=== PATIENT | male | born 1965 | race Caucasian/White ===

== ENCOUNTER 2025-01-24 14:25 | Emergency (ER) | payer OTHER, SELFPAY ==
[2025-01-24] VITALS (10 sets, daily range): BP systolic 144–200; BP diastolic 86–98; PULSE 68–80; RESP 6–34; TEMP 36.5; O2SAT 95–99; BMI 30.6
--- OUTSIDE RECORDS SUMMARY | 2025-01-24 14:27 | XMS_ITS | Clinical Summary ---
[facility] Address [address] [place] [address] Care Team Providers Care Fermenter Champagne Name Role Phone Pcp, Pt Declines Primary Care Provider [phone] Source Comments You are receiving this document as you are listed as the primary care provider,follow-up provider, or the patient has been referred to you for consultation.This is in compliance with the Medicare and[facility] EHR Incentive Program,which states Providers who transition their patient to another setting of careor provider of care or refers their patient to another provider of care shouldprovide summary care record for each transition of care or referral. [facility] Allerg[facility] Active Allergy Reactions Criticality Noted Date Comments Morphine Hives High 10/12/2016 Medications doxycycline hyclate (AKA PERIOSTAT) 20 MG tablet Take 20 mg by mouth two times a day. Take for 30 days. 6 7 Active minocycline (MINOCIN) 50 MG capsule 20 mg two times a day. 4 7 Active metroNIDAZOLE (METROGEL) 0.75 % gel APPLY 1 APPLICATION TO AFFECTED AREA 2 TIMES A DAY 3 7 Active Active Problems No known active problems Social History Tobacco Use Types Packs/Day Years Used Date Smoking Tobacco: Never Smokeless Tobacco: Never Alcohol Use Standard Drinks/Week Comments Yes 0 (1 standard drink = 0.6 oz pur e alcohol) 4 drinks per week on average Sex and Gender Information Value Date Recorded Sex Assigned at Not on file Legal Sex Male 8:15 AM CDT Gender Identity Not on file Sexual Orientation Not on file Last Filed Vital Signs Vital Sign Reading Time Taken Comments Blood Pressure - - Pulse - - Temperature 35.9 C (96.6 F) 04/20/2017 1:08 PM CDT Respiratory Rate - - Oxygen Saturation - - Inhaled Oxygen Concentration - - Weight 90.7 kg (200 lb) 10/12/2016 10:56 AM CDT Height 175.3 cm (5' 9) 10/12/2016 10:56 AM CDT Body Mass Index 29.53 10/12/2016 10:56 AM CDT Plan of Treatment Health Maintenance Due Date Last Done Comments Colon Cancer Screening Plan Due 1965 Hep C Screening (Preventive Services) 1965 PSA Screening Discussion 1965 HIV Screening (Preventive Services) 1979 Adult Preventive Visit 1981 Cholesterol 1998 Pneumococcal Vaccine 50+ Yrs (1 of 1 - PCV) 2013 Zoster/Shingles Vaccine (1 of 2) 2013 COVID-19 Vaccine (1 - 2023-2 5 season) 2024 Influenza Vaccine (Season Ended) 2025 DTaP/Tdap/Td Vaccine (2 - Tdap) 01/20/2027 7 RSV Vaccine (1 - 1-dose 75+ series) 2038 HepA Vaccine Aged Out No longer eligi ble based on patient's age to complete this topic HepB Vaccine Aged Out No longer eligi ble based on patient's age to complete this topic Hib Vaccine Aged Out No longer eligi ble based on patient's age to complete this topic IPV (Polio) Vaccine Aged Out No longe r eligible based on patient's age to complete this topic MCV4 Vaccine Aged Out No longer eligi ble based on patient's age to complete this topic Meningococcal B Vaccine Aged Out No l onger eligible based on patient's age to complete this topic Care Teams Fermenter Champagne Relationship Specialty Start Date End Date Pcp, Pt MD Megan [place], [place] [id number] PCP - General 03/09/17
--- OUTSIDE RECORDS SUMMARY | 2025-01-24 14:27 | XMS_ITS | Clinical Summary ---
Author Organization [facility] Address [address] [place] [id number] Care Team Providers Care Berry Picker Name Role Phone Pcp, No Primary Care Provider Unavailabl e Allergies Active Allergy Reactions Criticality Noted Date Comments Morphine Chest Pain 03/07/2012 Medications doxycycline (PERIOSTAT) 20 mg tablet Take 20 mg by mouth once daily. Active doxycycline (VIBRAMYCIN) 50 mg capsuleIndicati ons:Rosacea Take 1 Capsule (50 mg) by mouth once daily. Do not take with dairy. 90 Capsule 3 04/01/2023 Active Active Problems Problem Noted Date Diagnosed Date Rosacea 12/30/2022 Screening for colon cancer Immunizations Immunization Administration Dates Next Due Td (Age >=7 Years) 06/27/2002 Tdap 01/20/2017 Family History Medical History Relation Name Comments Good Health Father Heart Disease Mother Good Health Sister 1 Good Health Sister 2 Relation Name Status Comments Father Mother Sister 1 Sister 2 Social History Tobacco Use Types Packs/Day Years Used Date Smoking Tobacco: Never Smokeless Tobacco: Never Tobacco Cessation:Counseling Given: Yes Alcohol Use Standard Drinks/Week Comments Yes 0 (1 standard drink = 0.6 oz pur e alcohol) social PHQ-2 Answer Date Recorded PHQ-2 TOTAL SCORE 0 12/30/2022 Social Connections Answer Date Recorded Frequency of Communication with Friends and Fami ly Not on file 12/31/2023 Financial Resource Strain Answer Date R ecorded Difficulty of Paying Living Expenses 3 12/30/2022 Difficulty of Paying Living Expenses Not on file 12/30/2022 Food Insecurity Answer Date Recorded Worried About Running Out of Food in the Last Ye ar 1 12/30/2022 Transportation Needs Answer Date Record ed Lack of Transportation (Medical) 1 12/30/2022 Housing Stability Answer Date Recorded Unable to Pay for Housing in the Last Year 1 12/30/2022 Sex and Gender Information Value Date Recorded Sex Assigned at Not on file 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 Gender Identity Not on file Sexual Orientation Not on file Obstetrics History Last Filed Vital Signs Vital Sign Reading Time Taken Comments Blood Pressure 138/88 12/30/2022 8:30 AM CDT Pulse 80 12/30/2022 8:28 AM CDT Temperature 36.2 C (97.2 F) 02/22/2017 7:48 AM CDT Respiratory Rate 16 02/22/2017 10:38 AM CDT Oxygen Saturation 100% 02/22/2017 10:38 AM CDT Inhaled Oxygen Concentration - - Weight 92.3 kg (203 lb 6.4 oz) 12/30/2022 8:28 A M CDT Height 176.5 cm (5' 9.5) 12/30/2022 8:28 AM CDT Body Mass Index 29.61 12/30/2022 8:28 AM CDT Plan of Treatment Health Maintenance Due Date Last Done Comments HIV for age 15-65 1978 Hepatitis C screening for ag e 18-79 1981 Pneumococcal series for age 50+ (1 of 1 - PCV) 2013 Zoster (shingles) series for age 50+ (1 of 2) 2013 BMI (ht and wt on same day) for age 18+ 12/31/2023 12/30/2022, 01/22/2017, 01/20/2017 Depression screening for age 12+ 12/31/2023 12/30/2022, 01/20/2017 COVID-19 vaccine series ( season) 2024 12/05/2020, 11/12/2020 Influenza Vaccine (#1) 2025 Tetanus booster 01/20/2027 01/20/2017, 06/27/2002 Colonoscopy through age 75 02/22/2027 02/22/2017 Lipids for age 45-75 12/31/2027 12/30/2022, 01/21/2017, 03/07/2012 RSV vaccine for adults or (1 - 1-dose 75+ series) 2038 Hepatitis B series for 19+ Aged Out N o longer eligible based on patient's age to complete this topic Procedures Procedure Name Priority Date/Time Associated Diagnosis Comments LIPID PANEL W REFLEX MEASURED LDL Routine 12/30/2022 9:19 AM CDT Lipid screening COLONOSCOPY 02/22/2017 9:46 AM CDT from Last 3 Months or Most Recently Relevant to Health Maintenance Results * LIPID PANEL W REFLEX MEASURED LDL (12/30/2022 9:19 AM CDT) CHOLESTEROL,TOTAL 168 100 - 199 mg/dL 12/30/2022 5:56 PM CDT [facility] Comment: Cholesterol, Total Reference Ranges Desirable <200 mg/dL Borderline 200-239 mg/dL High >=240 mg/dL TRIGLYCERIDES 57 <150 mg/dL 12/30/2022 5:56 PM CDT [facility] HDL CHOLESTEROL 56 >40 mg/dL 5:56 PM CDT [facility] NON-HDL CHOLESTEROL 112 <145 mg/dl 12/30/2022 5:56 PM CDT [facility] CHOL/HDL RATIO 3.00 <4.50 12/30/2022 5:56 PM CDT [facility] LDL CHOLESTEROL 101 <=130 mg/dL 12/30/2022 5:56 PM CDT [facility] VLDL CHOLESTEROL 11 <=30 mg/dL 12/30/2022 5:56 PM CDT [facility] PROVIDER ORDERED STATUS RANDOM 12/30/2022 5:56 PM CDT [facility] Blood BLOOD SPECIMEN / Unknown Venipuncture / Unknown 12/30/2022 9:19 AM CDT 12/30/2022 9:20 AM CDT Yane Jarvis MD CHEMISTRY Final Res ult [facility] [address] [place] [address], * COLONOSCOPY (02/22/2017 9:46 AM CDT) 02/22/2017 9:46 AM CDT Narrative Transcriptions Sebastian Rivers MD - 02/22/2017 10:14 AM CDT Endoscopy Patient Name: Manny Bridges Procedure Date: 02/22/2017 Gender: Male Date of : 1965 Admit Type: Ambulatory Procedure: Colonoscopy Proceduralist: Sebastian Rivers MD Referring MD: Yane Jarvis Patient Profile: Gema Alcantar patient. Indications/Pre-Op Diagnosis: Screening for colorectal malignantneoplasm Medications: Monitored Anesthesia Care Procedure Description: The patient had risks, benefits and alternatives explained to andgave informed consent. The patient had a stable cardiopulmonary status and judged an adequate candidate for conscious sedation. The endoscope was passed through the anus and advanced to the cecum, identified by appendiceal orifice and ileocecal valve. Thecolonoscopy was performed without difficulty. The patient tolerated the procedure well. The quality of the bowel preparation was good. The ileocecal valve, appendiceal orifice, and rectum were photographed. Complications: No immediate complications. Estimated Blood Loss & Specimen: Estimated blood loss: none. Specimen collected: None Findings: The colon appeared normal. The perianal and digital rectal examinations were normal. Impressions/Post-Op Diagnosis: - The colon appeared normal. - No specimens collected. Recommendation: - Repeat colonoscopy in 10 years for surveillance. Sebastian Rivers MD 02/22/2017 10:13:56 AM This report has been signed electronically. Note Initiated On: 02/22/2017 9:46 AM Total Procedure Duration Time 0 hours 9 minutes 20 seconds Scope Withdrawal Time 0 hours 6 minutes 7 seconds Sebastian Rivers MD PROCEDURE ORD Final Result from Last 3 Months or Most Recently Relevant to Health Maintenance Insurance Advance Directives * Full Code (Latest Code Status on File) Date Activated Date Inactivated Comments 02/22/2017 7:44 AM 02/22/2017 12:58 PM Care Teams Berry Picker Relationship Specialty Start Date End Date Pcp, No . PCP - General 02/18/17
--- NOTE | 2025-01-24 15:15 | ED.GENADULT ---
HPI - General Adult General Chief complaint: Eye Problems Stated complaint: Headache, black spots in vision Time Seen by Provider: 01/24/25 14:26 History of Present Illness HPI narrative: Patient here with bilateral intermittent blacks spots in periphery starting at 7 am this morning , dull headache (bilaterally) 2/10 starting at 10 am. Doesn 't see a doctor often. Otherwise healthy. 59-year-old man presenting to emergency department with concern of high blood pressure and spots in his eyes. Does not have any visual problems other than needing progressive says. Does not get regular healthcare generally due to his degree of health. Has past standard screening see notes. Today woke around 6 or 615. At work around 7 he began to notice some spots in the periphery of his vision. This was located between 3-5 oclock in his right eye 9-7 oclock in his left eye. Would not having eye pain. There has been no trauma. The spots of come and gone over the course of the day. Also over the course the day began to mild generalized headache maybe 2/10. Does not typically get headaches. Certainly no diagnosis of migraines. No neck pain. No chest pain. No shortness of breath. No nausea. No weakness in his extremities or loss of sensation. No loss of vision otherwise. No diplopia. When he began to research his initial symptoms he went to get his blood pressure checked noted elevated in the 170s over 70ish and then with further research was advised to present for evaluation. Does not have a history of high blood pressure either. Related Data Home Medications ?Medication ?Instructions ?Recorded ?Confirmed doxycycline hyclate 50 mg capsule 50 mg PO DAILY 01/24/25 01/24/25 Allergies Allergy/AdvReac Type Severity Reaction Status Date / Time morphine Allergy Severe Difficulty Verified 01/24/25 14:32 Breathing Review of Systems Status of ROS: Reports: 6 or more systems reviewed and unremarkable except as noted in History and below [facility] Social History Smoking Status: Never smoker How often do you have a drink containing alcohol: 4 or more times a week How many standard drinks containing alcohol do you have on a typical day: 3 or 4 AUDIT-C Alcohol total score: 5 Non-prescribed substance use: denies use service: No Exam Narrative: Exam Narrative: Very pleasant. Well built. NAD. Hand. Cranial nerves 2-12 intact. Pupils are 3 mm and equal. Sclera look to be without irritation. Clear anterior chamber. Funduscopic exam in darkened room actually was done without notable difficulty. Exam looks WNL with visible optic discs. Extraocular movements are full. No pain to palpation about the neck. It is supple. Breathing easily. Heart in regular rate and rhythm without murmur rub or gallop. Head is atraumatic. Moving all extremities without difficulty/with good strength. No extremity edema. Is well-perfused. Const: Vital Signs, click to edit/add: Vital Signs - 24 hr 01/24/25 14:35 01/24/25 15:02 Temperature 97.7 F Pulse Rate [Pulse Oximeter] 80 72 Respiratory Rate 18 16 Blood Pressure [Ri t Upper Arm] 200/92 H 171/90 H Pulse Oximetry 99 96 Oxygen Delivery Me thod Room Air Room Air Documenting provider has reviewed patient's vital signs: yes Course Vital Signs Vital signs: Initial Vital Signs Temperature 97.7 F 01/24/25 14:35 Temperature Source Temporal Artery Scan 01/24/25 14:35 Pulse Rate 80 01/24/25 14:35 Respiratory Rate 18 01/24/25 14:35 Blood Pressure 200/92 H 01/24/25 14:35 Blood Pressure Mean 128 H 01/24/25 14:35 Blood Pressure Position Sitting 01/24/25 14:35 Pulse Oximetry 99 01/24/25 14:35 Oxygen Delivery Method Room Air 01/24/25 14:35 Vital Signs Temperature 97.7 F 01/24/25 14:35 Pulse Rate 80 01/24/25 14:35 Respiratory Rate 18 01/24/25 14:35 Blood Pressure 200/92 H 01/24/25 14:35 Pulse Oximetry 99 01/24/25 14:35 Oxygen Delivery Method Room Air 01/24/25 14:35 Temperature 97.7 F 01/24/25 14:35 Pulse Rate 72 01/24/25 15:02 Respiratory Rate 16 01/24/25 15:02 Blood Pressure 171/90 H 01/24/25 15:02 Pulse Oximetry 96 01/24/25 15:02 Oxygen Delivery Method Room Air 01/24/25 15:02 Medical Decision Making MDM Narrative Medical decision making narrative: Initial blood pressure upon arrival here is indeed elevated 200/92 with recheck of 171/90. By the time I am seeing him at 140/80 approximately. I am not convinced that this blood pressure reading is driving his symptoms here today though there could be some other event that has contributed to his high blood pressure. This does appear like a headache and these spots could be scotoma though perhaps unusual in that they been coming and going? I do not think needs a primary workup for his hypertension. Does not appear to have any risk factors for CVA. And no apparent prior diagnosis of hypertension. I did attempt to reach ophthalmology unsuccessfully today. Concern of intra-ocular problem, retinal? Strange though perhaps that it would be in both eyes. Subsequently placed a call to Neuro/Stroke Neuro. Concern expressed of potential occipital event/stroke. Recommendations were for brain MRI. Will also check standard labs related to high blood pressure. Coags. Will be handed off at change of shift pending results of MRI and laboratory evaluation. ECG Data Attestation: I personally reviewed and interpreted this ECG as follows: (Normal sinus rhythm at a rate of 70 without ischemic changes.) Discharge Plan Discharge Prescriptions: No Action doxycycline hyclate 50 mg capsule 50 mg PO DAILY Follow Up/Referrals: Provider,Not a Local [Primary Care Provider, Family Practice]
--- NOTE | 2025-01-24 15:59 | CRLHL7_ITS ---
For Patients: As a result of the Century Cures Act, medical imaging exams and procedure reports are released immediately into your electronic medical record. You may view this report before your referring provider. If you have questions, please contact your health care provider. Indication: Spots in peripheral vision. Technique: Noncontrast sagittal T1 weighted, axial FLAIR, axial T2 weighted, and axial diffusion weighted sequences are provided. Comparison: No prior studies available for comparison at this institution. Findings: The ventricles, sulci and gyri are normal size, shape and contour for age. No abnormal susceptibility artifacts. The midline structures are centrally located with no evidence of shift. There are no suspicious intra or extra-axial fluid collections. No region of restricted diffusion. A few scattered foci of T2 prolongation are present in the frontal and parietal lobe subcortical white matter that are nonspecific. Expected flow voids in the cavernous carotids and basilar artery. Impression: 1. No acute intracranial abnormalities. 2. A few scattered foci of T2 prolongation in the supratentorial white matter nonspecific. Differential considerations include sequelae of migraine headaches, prior inflammation, and chronic small vessel disease. Dictated by Darren Roberson MD @ 01/24/2025 4:43:00 PM (Electronically Signed)
[2025-01-24 17:26] LABS: Hematocrit 43.5 % (37.0-53.0); Hemoglobin* 15.1 gm/dL (13.5-17.5); Immature Granulocytes Abs Auto 0.01 K/uL (0.00-0.30); Immature Granulocytes Pct Auto 0.2 %; Lymphocytes Absolute Auto 1.81 K/uL (0.90-2.90); Mean Corpuscular HGB Conc 35 gm/dL (32-36); Mean Corpuscular Hemoglobin 33 pg (26-34); Mean Corpuscular Volume 94 fL (80-100); RDW Coefficient of Variation % 12.0 % (11.5-15.5); Red Blood Count 4.65 m/uL (4.30-5.90); White Blood Count* 5.92 K/uL (4.50-11.00)
[2025-01-24 17:27] LABS: Slide Review Reflex No
[2025-01-24 17:40] LABS: Chloride* 104 mmol/L (96-114); Sodium* 139 mmol/L (135-149)
[2025-01-24 17:41] LABS: Potassium* 4.0 mmol/L (3.6-5.1)
[2025-01-24 17:43] LABS: Anion Gap 9 mEq/L (7-15); Blood Urea Nitrogen* 19 mg/dL (7-30); Carbon Dioxide* 26 mmol/L (20-32); Creatinine* 1.2 mg/dL (0.5-1.5); Est. Creatinine Clearance* 64.64; Estimated Glomerular Filt Rate 69 ml/min
[2025-01-24 17:44] LABS: Calcium* 9.6 mg/dL (8.4-10.6); Glucose* 90 mg/dL (60-115)
[2025-01-24 17:46] LABS: INR 1.03 (0.91-1.10); Prothrombin Time 14.3 Seconds
[2025-01-24 17:57] LABS: NT Pro B Type NatriureticPept* 46 pg/mL (See Note)
[2025-01-24 18:00] LABS: Appearance Urine Clear (Clear)
== END 2025-01-24 18:37 | disposition home or self-care (01) ==
PROVIDERS: Family Medicine; Emergency Provider Emergency Medicine
DX: H43.393 Other vitreous opacities, bilateral (principal); R03.0 Elevated blood-pressure reading, without diagnosis of hypertension
CPT/HCPCS: 36415; 70551; 80048; 81001; 83880; 84484; 85025; 85610; 85730; 99284